=== PATIENT | female | born 1990 | race Two or more races ===

== ENCOUNTER 2018-06-20 21:57 | Emergency (ER) | payer MEDICAID | END 2018-06-20 23:51 | disposition home or self-care (01) | LOC: ER 21:57 | DX: B01.9 Varicella without complication (principal) ==

== ENCOUNTER 2019-10-21 12:33 | Emergency (ER) | payer SELFPAY ==
[~2019-10-21] VITALS: Ht 167.6 cm; Wt 90.7 kg
[2019-10-21] MEDS ORDERED: FOLIC ACID 1 MG TAB PO ONE (13:45)
[2019-10-21 13:51] LABS: Urine Bacteria FEW /hpf (None Seen); Urine Blood 2+ /uL (Negative); Urine Hyaline Cast FEW /lpf (0 - 2); Urine Mucus FEW (None Seen); Urine Specific Gravity 1.024 (1.001-1.035); Urine WBC 47 /hpf (0 - 5)
[2019-10-21 13:54] LABS: Basophils # (auto) 0.1 uL; Basophils % (auto) 0.8 % (0.0-2.0); Eosinophils # (auto) 0.2 uL; Eosinophils % (auto) 1.9 % (0.0-7.0); Hematocrit 33.8 % (36.0-46.0); Hemoglobin 11.4 g/dL (12.2-16.2); Lymphocytes # (auto) 2.2 uL; Lymphocytes % (auto) 26.8 % (10.0-50.0); Mean Corpuscular Hemoglobin 28.9 pg (28.0-32.0); Mean Corpuscular Hgb Conc. 33.6 g/dL (32.0-36.0); Mean Corpuscular Volume 85.8 fL (80.0-100.0); Monocytes # (auto) 0.4 uL; Monocytes % (auto) 5.4 % (0.0-12.0); Neutrophils # (auto) 5.4 uL; Neutrophils % (auto) 65.1 % (37.0-80.0); Nucleated Red Blood Cells % 0.1 %; Platelet Count (auto) 303 10^3/uL (140-450); Red Blood Cells 3.94 10^6/uL (4.0-5.20); Red Cell Distribution Width 15.4 % (11.8-14.3); White Blood Cell 8.2 10^3/uL (4.4-10.8)
[2019-10-21 14:11] LABS: Albumin 3.3 g/dL (3.4-5.0); Calcium 8.1 mg/dL (8.5-10.1); Potassium 3.9 mmol/L (3.5-5.1)
[2019-10-21 14:16] LABS: BUN/Creatinine Ratio 13.2; Bilirubin, Total 0.2 mg/dL (0.2-1.0); Total Protein 6.8 g/dL (6.4-8.2)
[2019-10-21 15:40] VITALS: BP 107/39
== END 2019-10-21 18:10 | disposition home or self-care (01) ==
LOC: ER 12:33
DX: O23.41 Unspecified infection of urinary tract in pregnancy, first trimester (principal); Z3A.13 13 weeks gestation of pregnancy
CPT/HCPCS: 36415; 76801; 80053; 81001; 81025; 84702; 85025

== ENCOUNTER 2025-01-29 22:47 | Emergency (ER) | payer MEDICAID ==
[~2025-01-29] VITALS: Ht 167.6 cm; Wt 109.9 kg
[2025-01-29 23:15] VITALS: BP 113/77; PULSE 68; RESP 18; TEMP 97.8; O2SAT 99
== END 2025-01-30 00:09 | disposition left against medical advice (07) ==
LOC: ER 22:47
DX: K08.89 Other specified disorders of teeth and supporting structures (principal); Z53.21 Procedure and treatment not carried out due to patient leaving prior to being seen by health care provider